=== PATIENT | female | born 1990 | race American Indian/Alaskan Native ===

== ENCOUNTER 2017-08-30 13:33 | Outpatient (CLI) | payer MEDICAID ==
[2017-08-30] MEDS ORDERED: XYLOCAINE TOPICAL 4% TP ONE ×2 (14:47→15:00)
== END 2017-08-30 13:34 | disposition home or self-care (01) ==
LOC: WOUND 13:33
PROVIDERS: ATTEND Surgery
DX: T81.89XA Other complications of procedures, not elsewhere classified, initial encounter (principal); I73.9 Peripheral vascular disease, unspecified; Z86.718 Personal history of other venous thrombosis and embolism; Y83.8 Other surgical procedures as the cause of abnormal reaction of the patient, or of later complication, without mention of misadventure at the time of the procedure; Y92.89 Other specified places as the place of occurrence of the external cause
CPT/HCPCS: 11042; G0463; 99215

== ENCOUNTER 2021-12-26 04:56 | Emergency (ER) | payer MEDICAID ==
[2021-12-26] MEDS ORDERED: levETIRAcetam 1000 MG/NS 0.75% 1,000 MG/100 ML BAG IV ONE (06:27)
--- NOTE | 2021-12-26 06:31 | Emergency Department Report ---
HPI - General Chief Complaint: Seizure Time Seen by Provider: 12/26/21 06:18 - HPI HPI: Room 2 The patient is a 31-year-old female present with chief complaint of seizures. Patient has a history of traumatic brain injury and seizures. The mother states the patient is on Keppra and has been compliant. Patient states this morning the patient complained of a headache and then subsequently had one of her seizures. EMS was called and administered Ativan 2 mg IM and Versed 10 mg IM. Upon arrival to the ED the patient is postictal ED Past Medical Hx - Past Medical History Previous Medical History?: Yes Hx Seizures: Yes Additional medical history: TBI, right lower extremity DVT - Surgical History Past Surgical History?: No Additional Surgical History: Craniotomy, thrombectomy, baclofen pain pump - Family History Family history: no significant - Social History Smoking Status: Never Smoker Substance Use Type: None - Medications Home Medications: Home Medications Medication Instructions Recorded Confirmed Last Taken Type Cyanocobalamin (Vitamin B-12) 1,000 mcg PO QDAY 08/08/17 08/08/17 Unknown History [B-12] Folic Acid [Folvite] 1 mg PO QDAY 08/08/17 08/08/17 Unknown History Omeprazole 40 mg PO QDAY 08/08/17 08/08/17 Unknown History l-Norgest/E.estradiol-E.estrad 1 each PO QDAY 08/08/17 08/08/17 Unknown History [Levono-E Estrad 0.15-0.03-0.01] Apixaban [Eliquis] 5 mg PO Q12HR #60 tablet 08/13/17 Unknown Rx HYDROcodone/ACETAMINOPHEN [[place]sea 1 each PO Q6H #20 tablet 08/13/17 Unknown Rx 5-325 Tablet] ED Review of Systems ROS: Stated complaint: SEIZURE Other details as noted in HPI Comment: Unobtainable due to pts medical conditions (Postictal) Physical Exam - Physical Exam Vital Signs: Vital Signs 12/26/21 12/26/21 12/26/21 04:56 05:15 05:57 Temperature 98.9 F Pulse Rate 110 H 100 H Respiratory 16 14 Rate Blood Pressure 126/73 Blood Pressure 105/64 [Left] O2 Sat by Pulse 98 98 Oximetry Physical Exam: GENERAL: The patient is well-developed well-nourished female lying on stretcher postictal. [] HEENT: Normocephalic. Atraumatic. Patient has moist mucous membranes. NECK: Supple. Trachea midline CHEST/LUNGS: Clear to auscultation. There is no respiratory distress noted. HEART/CARDIOVASCULAR: Regular. There is no tachycardia. There is no gallop rub or murmur. ABDOMEN: Abdomen is soft, nontender. Patient has normal bowel sounds. There is no abdominal distention. SKIN: There is no rash. There is no edema. There is no diaphoresis. NEURO: The patient is postictal. Patient opens her eyes to verbal and tactile stimuli but does not respond verbally MUSCULOSKELETAL: There is no evidence of acute injury. ED Course Vital Signs 12/26/21 12/26/21 12/26/21 04:56 05:15 05:57 Temperature 98.9 F Pulse Rate 110 H 100 H Respiratory 16 14 Rate Blood Pressure 126/73 Blood Pressure 105/64 [Left] O2 Sat by Pulse 98 98 Oximetry - Reevaluation(s) Reevaluation #1: 12/26/21 11:06 Patient now awake and denies complaints. ED Medical Decision Making - Lab Data Result diagrams: 12/26/21 06:40 12/26/21 06:40 Laboratory Tests 12/26/21 12/26/21 12/26/21 06:40 06:40 06:40 WBC 5.9 RBC 4.52 Hgb 12.3 Hct 37.0 MCV 82 MCH 27 L MCHC 33 RDW 14.5 Plt Count 244 Lymph % (Auto) 26.2 [place] % (Auto) 4.8 Eos % (Auto) 0.5 Baso % (Auto) 0.3 Lymph # (Auto) 1.5 [place] # (Auto) 0.3 Eos # (Auto) 0.0 Baso # (Auto) 0.0 Seg Neutrophils % 68.2 Seg Neutrophils # 4.0 Sodium 143 Potassium 4.4 Chloride 107.4 H Carbon Dioxide 17 L Anion Gap 23 BUN 8 Creatinine 0.9 Estimated GFR > 60 BUN/Creatinine Ratio 9 Glucose 109 H Calcium 8.8 Magnesium 2.00 HCG, Qual Negative - Radiology Data Radiology results: report reviewed (CT head), image reviewed (CT head) [facility] [address] [place] [address] Cat Scan Report Signed Patient: BIJAN WAKEFIELD MR#: [id number] : 1990 Acct:[id number] Age/Sex: 31 / F ADM Date: 12/26/21 Loc: ED Attending Dr: Ordering Physician: MAREN CHACKO MD Date of Service: 12/26/21 Procedure(s): CT head/brain wo con Accession Number(s): [id number] cc: MAREN CHACKO MD CT HEAD WITHOUT CONTRAST INDICATION / CLINICAL INFORMATION: Seizure. TECHNIQUE: All CT scans at this location are performed using CT dose reduction for ALARA by means of automated exposure control. COMPARISON: None available. FINDINGS: Diffuse cerebral atrophy. Compensatory increase in ventricular size. Diffuse areas of low- attenuation within left temporal lobe which could represent area of prior infarct and ischemic change. No acute intracranial hemorrhage except is seen. Small calcification cortex overlying the right posterior frontal lobe cerebellum appears normal. Visualized orbits appear normal. Postsurgical change of craniotomy defect in the left ADDITIONAL FINDINGS: None. IMPRESSION: 1. Postsurgical changes with craniotomy on the left. There is a large area of encephalomalacia with possible old infarct involving the left temporal lobe. If there is concern for acute on chronic ischemic change or disease MRI is recommended 2. Diffuse cerebral atrophy with compensatory increase in ventricular size Signer Name: Yaniv Raza MD Signed: 12/26/2021 8:00 AM Workstation Name: [id number] Transcribed By: STACI Dictated By: ELVA RAZA MD Electronically Authenticated By: ELVA RAZA MD Signed Date/Time: 12/26/21 0800 DD/ [id number] TD/TT: Print Cancel - Differential Diagnosis Seizure Critical care attestation.: If time is entered above; I have spent that time in minutes in the direct care of this critically ill patient, excluding procedure time. ED Disposition Clinical Impression: Seizure Disposition: 01 HOME / SELF CARE / HOMELESS Is pt being admited?: No Does the pt Need Aspirin: No Condition: Stable Additional Instructions: Return to the emergency department should you develop worsening symptoms, inability to tolerate food or liquids, high fever or any other concerns Referrals: ALYSSA GILLESPIE MD [Staff Physician] - 3-5 Days (Dr. Gillespie is a neurologist. Please follow-up with him for further evaluation if you do not already have your own neurologist) Time of Disposition: 11:07
--- NOTE | 2021-12-26 08:04 | Cat Scan Report ---
CT HEAD WITHOUT CONTRAST INDICATION / CLINICAL INFORMATION: Seizure. TECHNIQUE: All CT scans at this location are performed using CT dose reduction for ALARA by means of automated e xposure control. COMPARISON: None available. FINDINGS: Diffuse cerebral atrophy. Compensatory increase in ventricular size. Diffuse areas of low-attenuation within left temporal lobe which could represent area of prior infarct and ischemic change. No acute intracranial hemorrhage except is seen. Small calcification cortex overlying the right posterior fron dior lobe cerebellum appears normal. Visualized orbits appear normal. Postsurgical change of craniotom y defect in the left ADDITIONAL FINDINGS: None. IMPRESSION: 1. Postsurgical changes with craniotomy on the left. There is a large area of encephalomalacia with p ossible old infarct involving the left temporal lobe. If there is concern for acute on chronic ischem ic change or disease MRI is recommended 2. Diffuse cerebral atrophy with compensatory increase in ventricular size Signer Name: Yaniv Raza MD Signed: 12/26/2021 8:00 AM Workstation Name: [id number]
[2021-12-26 09:15] LABS: BUN/Creatinine Ratio 9; Blood Urea Nitrogen 8 mg/dL (7-17); Calcium 8.8 mg/dL (8.4-10.2); Hemolysis Index 29
[2021-12-26 11:03] LABS: Basophils % (Auto) 0.3 % (0.0-1.8); Eosinophils % (Auto) 0.5 % (0.0-4.3); Hemoglobin 12.3 gm/dl (10.1-14.3); Lymphocytes # (Auto) 1.5 K/mm3 (1.2-5.4); Lymphocytes % (Auto) 26.2 % (13.4-35.0); Mean Corpuscular HGB Conc 33 % (30-34); Mean Corpuscular Volume 82 fl (79-97); Monocytes # (Auto) 0.3 K/mm3 (0.0-0.8); Monocytes % (Auto) 4.8 % (0.0-7.3); Platelet Count 244 K/mm3 (140-440); Red Blood Count 4.52 M/mm3 (3.65-5.03); Red Cell Distribution Width 14.5 % (13.2-15.2)
[2021-12-26 12:55] VITALS: BP 107/69
--- NOTE | 2021-12-26 14:44 | Electrocardiograph Report ---
[facility] Test Date: 2021-12-26 Test Time: 05:05:30 Pat Name: BIJAN WAKEFIELD Department: Room: Gender: F Trimmer Hand: : 1990 Requested By: MAREN CHACKO Order Number: [id number] Reading MD: Katerina Solis Measurements Intervals Olga Rate: 86 P: 23 AR: 146 QRS: 65 QRSD: 83 T: 25 QT: 350 QTc: 420 Interpretive Statements Sinus rhythm No previous ECG available for comparison Electronically Signed On 12-26-2021 14:44:46 EDT by Katerina Solis
== END 2021-12-26 12:35 | disposition home or self-care (01) ==
LOC: ED 04:56
DX: R56.9 Unspecified convulsions (principal)
CPT/HCPCS: 36415; 70450; 80048; 83735; 84703; 85025; 93005; 96374; 99284; J1953